=== PATIENT | female | born 1955 | race Two or more races ===

== ENCOUNTER 2022-02-07 09:07 | Emergency (ER) | payer MEDICARE ==
[2022-02-07] MEDS ORDERED: 0.9% SODIUM CHLORIDE 1,000 ML BAG IV ONE (09:08)
[2022-02-07] MEDS ORDERED: 0.9% SODIUM CHLORIDE 10 ML SYRINGE IVP ONE (09:08)
[2022-02-07] MEDS ORDERED: EPINEPHrine 1:10,000 [1 MG/10 ML] SYRINGE IVP ONE (09:08)
[2022-02-07] MEDS ORDERED: CALCIUM GLUCONATE 100 MG/ML 10 ML IVP ONE (09:08)
[2022-02-07 11:49] LABS: COVID AG,FIA SOURCE NASAL SWAB
== END 2022-02-07 12:31 ==
LOC: EMS 09:07
DX: I46.9 Cardiac arrest, cause unspecified (principal); Z20.822 Contact with and (suspected) exposure to COVID-19
CPT/HCPCS: 87426; 92950; 99285; J0171; J0610; J7030; U0003